=== PATIENT | male | born 1985 | race Caucasian/White ===

== ENCOUNTER 2024-08-17 20:05 | Emergency (ER) | payer OTHER ==
[~2024-08-17] VITALS: Ht 175.3 cm; Wt 84.1 kg
[2024-08-17 20:27] LABS: COVID AG,FIA SOURCE NASAL SWAB
[2024-08-17 20:41] LABS: RAPID GROUP A STREP NEGATIVE (NEGATIVE)
[2024-08-17 20:47] LABS: INFLUENZA TYPE A NEGATIVE FOR TYPE A (NEGATIVE); INFLUENZA TYPE B NEGATIVE FOR TYPE B (NEGATIVE); SARS-COV2 (COVID) ANTIGEN,FIA Negative (Negative)
[2024-08-17] MEDS: IBUPROFEN 600 MG TABLET PO ONE (21:07)
[2024-08-17 21:18] LABS: BASOPHILS % (AUTO) 0.5 % (0.0-2.0); EOSINOPHILS % (AUTO) 1.7 % (1.0-6.0); HEMATOCRIT 46.1 % (41-53); HEMOGLOBIN 15.6 g/dL (13.5-17.5); LYMPHOCYTES # (AUTO) 1.2 K/uL (1.0-4.8); LYMPHOCYTES % (AUTO) 15.9 % (22.0-44.0); MEAN CORPUSCULAR HEMOGLOBIN 28.2 pg (26.0-34.0); MEAN CORPUSCULAR VOLUME 83 fL (80-100); MONOCYTES # (AUTO) 0.9 K/uL (0.1-1.0); MONOCYTES % (AUTO) 11.1 % (2.0-9.0); NEUTROPHILS # (AUTO) 5.5 K/uL (1.8-7.7); NEUTROPHILS % (AUTO) 70.8 % (40.0-70.0); PLATELET COUNT (AUTO) 188 K/uL (150-450); RED BLOOD CELL COUNT(AUTO) 5.55 MIL/uL (4.50-5.90); RED CELL DISTRIBUTION WIDTH 13.1 % (11.5-14.5); WHITE BLOOD COUNT (AUTO) 7.8 K/uL (4.5-11.0)
[2024-08-17 21:31] LABS: ANION GAP 7 mmol/L (8-16); CALCIUM, TOTAL 9.5 mg/dL (8.8-10.5); CARBON DIOXIDE 30 mmol/L (22-29); CHLORIDE 102 mmol/L (98-107); CREATININE 1.08 mg/dL (0.60-1.30); GLOMERULAR FILTR. RATE CALC > 60 mL/min (>60); GLUCOSE,RANDOM 93 mg/dL (70-110); SODIUM SERUM 139 mmol/L (136-145); UREA NITROGEN, BLOOD 16 mg/dL (7-18)
[2024-08-17 22:45] VITALS: BP 150/92; PULSE 85; RESP 16; TEMP 98.5; O2SAT 100
[2024-08-17] MEDS ORDERED: GUAIFDM PO (23:03)
[2024-08-17] MEDS ORDERED: IBUP-1554 PO (23:03)
[2024-08-17] MEDS ORDERED: ACET-66 PO (23:03)
[2024-08-17] MEDS: GuaiFENesin/D-METHORPHAN [SUGAR-FREE] 200-20MG/10 ML SYRUP UDCUP PO ONE (23:16)
[2024-08-17] MEDS: ACETAMINOPHEN 500 MG TABLET PO ONE (23:16)
== END 2024-08-17 23:22 | disposition home or self-care (01) ==
LOC: EMS 20:05
DX: J06.9 Acute upper respiratory infection, unspecified (principal); F12.90 Cannabis use, unspecified, uncomplicated; I49.8 Other specified cardiac arrhythmias; Z20.822 Contact with and (suspected) exposure to COVID-19
CPT/HCPCS: 71045; 80048; 85025; 87430; 87804; 93005; 99285; 36415-L1; 36415-TC